=== PATIENT | male | born 1995 | race African-American/Black ===

== ENCOUNTER 2019-09-10 23:15 | Emergency (ER) | payer SELFPAY ==
[2019-09-11] MEDS ORDERED: CEPHALEXIN 500 MG CAPSULE PO ONE (00:45)
[2019-09-11 00:50] VITALS: BP 172/88
--- NOTE | 2019-09-11 00:50 | ER Document Report ---
HPI - HPI Patient complains to provider of: facial swelling Time Seen by Provider: 09/11/19 00:41 Pain Level: 2 Context: 24-year-old male with no previous medical problems presents to the emergency room complaining of swelling to his left upper lip for the past 2 days. Denies any fevers. No nausea, no vomiting, no trauma no injury. No history of cold sores. Tried using topical antibiotic ointment without relief. Denies sore throat care. Denies any dental issues. States he thinks it may have started as a pimple that he tried to pop. Associated Symptoms: None Exacerbated by: Denies Relieved by: Denies Similar symptoms previously: No Recently seen / treated by doctor: No - ROS Systems Reviewed and Negative: Yes All other systems reviewed and negative - CONSTITUTIONAL Constitutional: DENIES: Fever, Chills - EENT EENT: DENIES: Sore Throat, Nasal Drainage-Clear Notes: Swelling above left upper lip - NEURO Neurology: DENIES: Headache, Weakness - DERM Skin Color: Erythema Skin Problems: Rash, Blister Past Medical History - General Information source: Patient - Social History Smoking Status: Never Smoker Frequency of alcohol use: Occasional Drug Abuse: None Family History: Reviewed & Not Pertinent Pulmonary Medical History: Reports: Hx Asthma, Hx Pneumonia Past Surgical History: Reports: Hx Orthopedic Surgery - RIGHT KNEE. TORN MENICUS - Immunizations Immunizations up to date: Yes Hx Diphtheria, Pertussis, Tetanus Vaccination: Yes Vertical Provider Document - CONSTITUTIONAL Agree With Documented VS: Yes Exam Limitations: No Limitations General Appearance: Mild Distress - INFECTION CONTROL TRAVEL OUTSIDE OF THE [place] IN LAST 30 DAYS: No - HEENT HEENT: Atraumatic, Normocephalic. negative: Normal ENT Exam, Pharyngeal Erythema - NECK Neck: Normal Inspection, Supple, Thyroid Normal. negative: Lymphadenopathy- Left, Lymphadenopathy-Right - RESPIRATORY Respiratory: Breath Sounds Normal, No Respiratory Distress, Chest Non-Tender - CARDIOVASCULAR Cardiovascular: Regular Rate, Regular Rhythm, No Murmur - NEURO Level of Consciousness: Awake, Alert, Appropriate Motor/Sensory: No Motor Deficit, No Sensory Deficit - DERM Integumentary: Warm, Dry, Rash Notes: Left upper lip with a scattered erythematous vesicles. They are erythematous. They are not warm or tender to palpation. There is no active discharge or d raining noted. There are no honey crusted lesions. Course - Re-evaluation Re-evalutation: 09/11/19 00:48 Counseled patient on diagnosis. Antibiotics as prescribed. Given first dose of Keflex in the emergency room. Patient was counseled on proper wound care. Outpatient follow-up with her primary care physician if not improving in 2 to 3 days. On-call physician was provided. Patient was given strict return to the emergency room guidelines. Return for any new or worsening symptoms. All questions were answered. Patient verbalized understanding and agrees with plan of care. - Vital Signs Vital signs: Temp Pulse Resp BP Pulse Ox 98.7 F 74 16 181/90 H 98 09/10/19 23:20 09/10/19 23:20 09/10/19 23:20 09/10/19 23:20 09/10/19 23:20 Discharge - Discharge Clinical Impression: Cellulitis and abscess of face Condition: Stable Disposition: HOME, SELF-CARE Instructions: Cephalexin ([facility]), Cellulitis ([facility]) Additional Instructions: Antibiotics as prescribed. Outpatient follow-up with a primary care physician if not improving in 2 to 3 days. Return to the emergency room for any new or wo rsening symptoms. Prescriptions: Cephalexin Monohydrate [Keflex 500 mg Capsule] 500 mg PO Q6H 10 Days #40 capsule Referrals: CAESAR WOODSON MD [[facility]] - Follow up as needed
== END 2019-09-11 00:55 | disposition home or self-care (01) ==
LOC: ER 23:15
DX: L03.211 Cellulitis of face (principal); R22.0 Localized swelling, mass and lump, head
CPT/HCPCS: 99283